=== PATIENT | male | born 1930 | race Caucasian/White ===

== ENCOUNTER 2017-02-09 18:16 | Emergency (ER) | payer OTHER, MEDICARE ==
[~2017-02-09] VITALS: Ht 177.8 cm; Wt 95.0 kg
[2017-02-09 18:25] VITALS: BP 205/86; PULSE 66; RESP 14; TEMP 97.9; O2SAT 97
[2017-02-09 18:57] LABS: AUTOMATED NEUTROPHIL # 4.1 TH/MM3 (1.8-7.7); BASOPHIL % 0.3 % (0.0-2.0); EOSINOPHIL % 0.8 % (0.0-4.0); HEMATOCRIT 35.7 % (39.0-51.0); HEMOGLOBIN 11.9 GM/DL (13.0-17.0); LYMPH % 18.1 % (9.0-44.0); LYMPHOCYTE # 1.1 TH/MM3 (1.0-4.8); MEAN CELL VOLUME 97.8 FL (80.0-100.0); MEAN CORPUSCULAR HEMOGLOBIN 32.5 PG (27.0-34.0); MEAN CORPUSCULAR HGB CONC 33.2 % (32.0-36.0); MEAN PLATELET VOLUME 10.4 FL (7.0-11.0); MONOCYTE # 0.6 TH/MM3 (0-0.9); NEUT % 69.8 % (16.0-70.0); PLATELET COUNT 106 TH/MM3 (150-450); RED BLOOD COUNT 3.66 MIL/MM3 (4.50-5.90); RED CELL DISTRIBUTION WIDTH 14.7 % (11.6-17.2); WHITE BLOOD COUNT 5.8 TH/MM3 (4.0-11.0)
[2017-02-09 19:00] VITALS: BP 164/78; PULSE 60; RESP 14; O2SAT 98
[2017-02-09] MEDS ORDERED: TETANUS/DIPHTHERIA TOXOID ADULT 0.5 ML VIAL IM ONE (19:00)
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
[2017-02-09 19:15] LABS: INTERNATIONAL NORMALIZED RATIO 1.1 RATIO; PROTHROMBIN TIME - PATIENT 11.7 SEC (9.8-11.6)
[2017-02-09 19:16] LABS: ALT (GPT) 16 U/L (12-78)
[2017-02-09 19:19] LABS: ALKALINE PHOSPHATASE 80 U/L (45-117); TOTAL BILIRUBIN ADULT 0.5 MG/DL (0.2-1.0); TOTAL PROTEIN 7.7 GM/DL (6.4-8.2)
[2017-02-09 19:20] LABS: ALBUMIN 3.4 GM/DL (3.4-5.0); AST (GOT) 24 U/L (15-37); BICARBONATE 22.8 MEQ/L (21.0-32.0); BLOOD UREA NITROGEN 50 MG/DL (7-18); CALCIUM 8.3 MG/DL (8.5-10.1); CHLORIDE 108 MEQ/L (98-107); CREATININE 2.87 MG/DL (0.60-1.30); GLOMERULAR FILTRATION RATE 21 ML/MIN (>89); GLUCOSE,RANDOM 96 MG/DL (74-106); SODIUM (NA) 138 MEQ/L (136-145)
[2017-02-09] MEDS ORDERED: ONDANSETRON HCL 4 MG/2 ML VIAL IV PUSH ONE (19:30)
[2017-02-09] MEDS ORDERED: SODIUM CHLOR 0.9% 1000 ML INJ 1,000 ML IV ONE ×2 (19:30→20:30)
[2017-02-09] MEDS ORDERED: MORPHINE SULFATE 4 MG/ML INJ IV PUSH ONE (19:30)
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
[2017-02-09 20:01] VITALS: O2SAT 98
[2017-02-09 20:02] VITALS: BP 192/77; PULSE 60; PULSE 62; RESP 14; O2SAT 98
[2017-02-09] MEDS ORDERED: CLOP75TA PO (20:22)
[2017-02-09] MEDS ORDERED: FURO40TA PO (20:22)
[2017-02-09] MEDS ORDERED: GLYB5TAB3 PO (20:22)
[2017-02-09] MEDS ORDERED: TAMS0.4C4 PO (20:23)
[2017-02-09] MEDS ORDERED: NITR0.2D T-DERMAL (20:23)
[2017-02-09] MEDS ORDERED: CALC0.25 PO (20:23)
[2017-02-09] MEDS ORDERED: METO25TA3 PO (20:23)
[2017-02-09] MEDS ORDERED: MEMA1TAB2 PO (20:23)
[2017-02-09 20:35] LABS: BANDS 5 % (0-6); LYMPHOCYTES 14 % (9-44); MONOCYTES 8 % (0-8); MYELOCYTES 1 % (0-0); NEUTROPHIL # MANUAL DIFF 4.5 TH/MM3 (1.8-7.7); POLYS (SEG NEUTROPHILS) 71 % (16-70)
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
--- NOTE | 2017-02-09 23:00 | EKG ---
Date Performed: 02/09/2017 Time Performed: 19:18:06 PTAGE: 86 years EKG: ELECTRONIC VENTRICULAR PACEMAKER ABNORMAL RHYTHM ECG NO PREVIOUS TRACING DOCTOR: Ady Conklin Interpretating Date/Time 02/09/2017 22:59:32
== END 2017-02-09 22:11 | disposition home or self-care (01) ==
LOC: NEPC 18:16
DX: S09.90XA Unspecified injury of head, initial encounter (principal); S20.219A Contusion of unspecified front wall of thorax, initial encounter; S80.02XA Contusion of left knee, initial encounter; S60.811A Abrasion of right wrist, initial encounter; V89.2XXA Person injured in unspecified motor-vehicle accident, traffic, initial encounter; Z23 Encounter for immunization
CPT/HCPCS: 70450; 71010; 71250; 72125; 72170; 73560; 74176; 80053; 82550; 85007; 85027; 85610; 85730; 90471; 90714; 93005; 96361; 96374; 96375; 99285; J2270; J2405; J7030